=== PATIENT | male | born 1985 | race African-American/Black ===

== ENCOUNTER 2017-01-19 02:23 | Emergency (ER) | payer SELFPAY ==
[~2017-01-19] VITALS: Ht 190.5 cm; Wt 91.0 kg
[2017-01-19] MEDS ORDERED: KETOROLAC 30MG/ML VIAL IV STA (02:43)
[2017-01-19] MEDS ORDERED: ASPIRIN 81MG TABLET PO ONE (02:45)
[2017-01-19 03:08] LABS: EOSINOPHILS % 1.8 % (0.0-5.0); HEMATOCRIT. 38.6 % (42.0-52.0); HEMOGLOBIN. 12.5 g/dL (14.0-18.0); LYMPHOCYTES % 22.7 % (20.0-50.0); MEAN CORPUSCULAR HEMOGLOBIN 21.9 pg (28.0-32.0); MEAN CORPUSCULAR VOLUME 67.8 fL (80.0-94.0); MEAN PLATELET VOLUME 8.7 fl (7.4-10.4); MONOCYTES % 7.7 % (2.0-8.0); NEUTROPHILS % 66.8 % (40.0-76.0); PLATELET 246 x1000/uL (130-400); RED CELL DISTRIBUTION WIDTH 14.7 % (11.6-14.6)
[2017-01-19 03:11] LABS: PLATELET ESTIMATE 246
[2017-01-19 03:15] LABS: D-DIMER 0.47 mg/L FEU (<0.50); INR 1.1; PROTHROMBIN TIME 11.4 sec (9.4-11.6)
[2017-01-19 03:24] LABS: CARBON DIOXIDE 26 mEq/L (21-32); CHLORIDE 103 mEq/L (98-107); ETHANOL BLOOD < 10 mg/dL; TROPONIN I < 0.02 ng/mL (0.00-0.04)
[2017-01-19] MEDS ORDERED: VISCOUS LIDOCAINE 2% 15 ML UDC PO ONE (03:30)
[2017-01-19] MEDS ORDERED: MAGNESIUM/ALUMINUM HYDROXIDE/SIMETHICONE 30ML UDC PO ONE (03:30)
[2017-01-19] MEDS ORDERED: VISCOUS LIDOCAINE 2% 15 ML UDC PO SCH (03:46)
[2017-01-19] MEDS ORDERED: MAGNESIUM/ALUMINUM HYDROXIDE/SIMETHICONE 30ML UDC PO SCH (03:46)
[2017-01-19 03:53] LABS: *AMPHETAMINES SCREEN URINE NEGATIVE (NEGATIVE); *BARBITURATES SCREEN URINE NEGATIVE (NEGATIVE); *BENZODIAZEPINES SCREEN URINE NEGATIVE (NEGATIVE); *COCAINE SCREEN URINE NEGATIVE (NEGATIVE); CANNABINOID URINE SCREEN NEGATIVE (NEGATIVE); METHADONE URINE SCREEN NEGATIVE (NEGATIVE); OPIATES URINE SCREEN NEGATIVE (NEGATIVE); PHENCYCLIDINE URINE SCREEN NEGATIVE (NEGATIVE)
[2017-01-19 04:28] VITALS: BP 131/77
== END 2017-01-19 05:50 | disposition home or self-care (01) ==
LOC: ER 02:23
DX: R07.9 Chest pain, unspecified (principal); J45.909 Unspecified asthma, uncomplicated
CPT/HCPCS: 36415; 71010; 80053; 80305; 83690; 83880; 84484; 85025; 85379; 85610; 93005; 96374; 99285; G0482; J1885; Z7610

== ENCOUNTER 2017-03-05 01:35 | Inpatient (IN) | payer SELFPAY ==
[~2017-03-05] VITALS: Ht 190.5 cm; Wt 91.2 kg
[2017-03-05] MEDS ORDERED: KETOROLAC 30MG/ML VIAL IV STA (02:12)
[2017-03-05] MEDS ORDERED: SODIUM CHLORIDE 0.9% 1,000 ML IV ONE (02:15)
[2017-03-05] MEDS ORDERED: NITROGLYCERIN 0.4MG TABLET SL SL PRN (02:15)
[2017-03-05] MEDS ORDERED: ASPIRIN 81MG TABLET PO ONE (02:15)
[2017-03-05 03:00] LABS: HEMATOCRIT. 38.7 % (42.0-52.0); HEMOGLOBIN. 12.6 g/dL (14.0-18.0); MEAN CORPUSCULAR HEMOGLOBIN 21.9 pg (28.0-32.0); MEAN CORPUSCULAR VOLUME 67.7 fL (80.0-94.0); MEAN PLATELET VOLUME 9.2 fl (7.4-10.4); PLATELET 175 x1000/uL (130-400); RED BLOOD CELL COUNT 5.72 mill/uL (4.7-6.1); RED CELL DISTRIBUTION WIDTH 15.1 % (11.6-14.6)
[2017-03-05 03:04] LABS: INR 1.1; PROTHROMBIN TIME 11.6 sec (9.4-11.6)
[2017-03-05 03:12] LABS: CARBON DIOXIDE 29 mEq/L (21-32); CHLORIDE 99 mEq/L (98-107); CREATINE KINASE 95 IU/L (39-308); TROPONIN I < 0.02 ng/mL (0.00-0.04)
[2017-03-05 03:13] LABS: CREATINE KINASE MB FRACTION < 0.5 ng/mL (0.5-3.6)
[2017-03-05] MEDS ORDERED: MAGNESIUM/ALUMINUM HYDROXIDE/SIMETHICONE 30ML UDC PO ONE (04:45)
[2017-03-05] MEDS ORDERED: CLONIDINE 0.1MG TABLET PO PRN (06:15)
[2017-03-05] MEDS ORDERED: MAGNESIUM/ALUMINUM HYDROXIDE/SIMETHICONE 30ML UDC PO PRN (06:15)
[2017-03-05] MEDS ORDERED: ONDANSETRON HCL 4MG/2ML VIAL IV PRN (06:15)
[2017-03-05] MEDS: HYDROCODONE/ACETAMINOPHEN 5/325MG TABLET PO PRN ×4 (06:28→23:50)
[2017-03-05 06:30] LABS: PLATELET ESTIMATE NORMAL
[2017-03-05 08:10] VITALS: BP 123/71
[2017-03-05 09:00] VITALS: BP 123/71
[2017-03-05] MEDS: ASPIRIN 81MG EC TABLET PO SCH (10:29)
[2017-03-05 12:10] VITALS: BP 114/75
[2017-03-05 16:33] LABS: CREATINE KINASE 56 IU/L (39-308); CREATINE KINASE MB FRACTION < 0.5 ng/mL (0.5-3.6); TROPONIN I < 0.02 ng/mL (0.00-0.04)
[2017-03-05] MEDS: GUAIFENESIN 200MG/10ML SUGAR FREE UDC PO PRN (16:47)
[2017-03-05 17:10] VITALS: BP 121/63
[2017-03-05 18:32] LABS: *AMPHETAMINES SCREEN URINE NEGATIVE (NEGATIVE); *BARBITURATES SCREEN URINE NEGATIVE (NEGATIVE); *BENZODIAZEPINES SCREEN URINE NEGATIVE (NEGATIVE); *COCAINE SCREEN URINE NEGATIVE (NEGATIVE); CANNABINOID URINE SCREEN NEGATIVE (NEGATIVE); METHADONE URINE SCREEN NEGATIVE (NEGATIVE); OPIATES URINE SCREEN PRESUMTIVE POSITIVE (NEGATIVE); PHENCYCLIDINE URINE SCREEN NEGATIVE (NEGATIVE)
[2017-03-05 19:41] VITALS: BP 111/66
[2017-03-06] VITALS: BP 106/65
[2017-03-06 00:06] LABS: CREATINE KINASE 44 IU/L (39-308); CREATINE KINASE MB FRACTION < 0.5 ng/mL (0.5-3.6); TROPONIN I < 0.02 ng/mL (0.00-0.04)
[2017-03-06 04:00] VITALS: BP 118/67
[2017-03-06 08:36] VITALS: BP 106/51
[2017-03-06 08:54] LABS: CARBON DIOXIDE 27 mEq/L (21-32); CHLORIDE 101 mEq/L (98-107); HDL CHOLESTEROL 62 mg/dL (40-59); LDL CHOLESTEROL 60 mg/dL (5-100)
[2017-03-06] MEDS: ASPIRIN 81MG EC TABLET PO SCH (09:00)
[2017-03-06] MEDS ORDERED: ACETAMINOPHEN 325MG TABLET PO PRN (11:00)
[2017-03-06] MEDS: HYDROCODONE/ACETAMINOPHEN 5/325MG TABLET PO PRN ×2 (12:12→20:49)
[2017-03-06 12:51] VITALS: BP 108/58
[2017-03-06] MEDS: GUAIFENESIN 200MG/10ML SUGAR FREE UDC PO PRN (15:46)
[2017-03-06 16:15] VITALS: BP 103/57
[2017-03-06 19:55] VITALS: BP 112/59
[2017-03-06] MEDS ORDERED: BISACODYL 10MG SUPP PR PRN (21:00)
[2017-03-06] MEDS ORDERED: DOCUSATE SODIUM 100MG CAPSULE PO SCH (21:00)
[2017-03-07] VITALS (32 sets, daily range): BP systolic 45–131; BP diastolic 20–78
[2017-03-07] MEDS ORDERED: BACITRACIN ZINC 15GM TUBE TOP ONE (06:32)
[2017-03-07] MEDS ORDERED: SKIN ADHESIVE 0.7 GM EA TOP ONE (06:32)
[2017-03-07] MEDS ORDERED: BACITRACIN 50,000 UNITS/VIAL ONE (06:33)
[2017-03-07] MEDS ORDERED: NORMAL SALINE 0.9% 10 ML SYR ONE (06:33)
[2017-03-07] MEDS ORDERED: BUPIVACAINE/EPINEPH/PF 0.25%/0.0005 10ML ONE (06:41)
[2017-03-07 07:08] LABS: BASOPHILS % 0.2 % (0.0-2.0); EOSINOPHILS % 1.1 % (0.0-5.0); HEMATOCRIT. 34.5 % (42.0-52.0); MEAN CORPUSCULAR HEMOGLOBIN 21.9 pg (28.0-32.0); MEAN CORPUSCULAR VOLUME 68.5 fL (80.0-94.0); MEAN PLATELET VOLUME 8.3 fl (7.4-10.4); MONOCYTES % 14.2 % (2.0-8.0); NEUTROPHILS % 70.5 % (40.0-76.0); PLATELET 223 x1000/uL (130-400); RED BLOOD CELL COUNT 5.03 mill/uL (4.7-6.1); RED CELL DISTRIBUTION WIDTH 15.2 % (11.6-14.6)
[2017-03-07] MEDS ORDERED: NOREPINEPHRINE 4 MG in DEXT 5% WATER 246 ML IV NR (07:30)
[2017-03-07] MEDS ORDERED: EPINEPHRINE 4 MG in DEXT 5% WATER 246 ML IV NR (07:30)
[2017-03-07 07:57] LABS: CARBON DIOXIDE 28 mEq/L (21-32); CHLORIDE 99 mEq/L (98-107)
[2017-03-07] MEDS ORDERED: ROCURONIUM BROMIDE 10MG/ML VIAL 5ML IV ONE (08:09)
[2017-03-07] MEDS ORDERED: CEFAZOLIN SODIUM 1000MG/VIAL ONE (08:09)
[2017-03-07] MEDS ORDERED: DEXAMETHASONE 4MG/ML 1ML VIAL ONE (08:09)
[2017-03-07] MEDS ORDERED: FUROSEMIDE 20MG/2ML VIAL ONE (08:40)
[2017-03-07] MEDS ORDERED: NEOSTIGMINE METHYLSULFATE 1MG/ML 10 ML VIAL ONE (08:43)
[2017-03-07] MEDS: ASPIRIN 81MG EC TABLET PO SCH (09:00)
[2017-03-07 09:57] LABS: BG BASE EXCESS -5.2 mmol/L (-2.0-2.0); BG CARBOXYHEMOGLOBIN 0.6 % (0.5-1.5); BG DEOXYHEMOGLOBIN 4.1 % (0.0-5.0); BG HCO3 ACT 18.3 mmol/L (22.0-26.0); BG METHEMOGLOBIN 0.4 % (0.0-1.5); BG OXYGEN SATURATION 95.9 % (92.0-98.5); BG OXYHEMOGLOBIN 94.9 % (94.0-97.0); BG PCO2 30.1 mmHg (35.0-45.0); BG PH 7.402 (7.350-7.450); BG PO2 84.2 mmHg (75.0-100.0); BG SAMPLE SITE A-LINE; BG TOTAL HEMOGLOBIN 13.7 g/dL (12.0-18.0); BG VENT MODE NASAL CANNULA
[2017-03-07] MEDS: MORPHINE SULFATE 4 MG/ML CPJ (NOT FOR IM USE) IV PRN ×5 (10:09→20:47)
[2017-03-08] VITALS (23 sets, daily range): BP systolic 96–139; BP diastolic 50–87
[2017-03-08] MEDS: MORPHINE SULFATE 4 MG/ML CPJ (NOT FOR IM USE) IV PRN ×3 (00:49→21:37)
[2017-03-08] MEDS: ASPIRIN 81MG EC TABLET PO SCH (09:00)
[2017-03-09] VITALS (13 sets, daily range): BP systolic 105–144; BP diastolic 53–83
[2017-03-09] MEDS: MORPHINE SULFATE 4 MG/ML CPJ (NOT FOR IM USE) IV PRN (04:29)
[2017-03-09 07:26] LABS: BASOPHILS % 0.5 % (0.0-2.0); EOSINOPHILS % 2.7 % (0.0-5.0); HEMATOCRIT. 35.5 % (42.0-52.0); HEMOGLOBIN. 11.8 g/dL (14.0-18.0); LYMPHOCYTES % 26.4 % (20.0-50.0); MEAN CORPUSCULAR HEMOGLOBIN 22.3 pg (28.0-32.0); MEAN CORPUSCULAR VOLUME 67.3 fL (80.0-94.0); MEAN PLATELET VOLUME 8.1 fl (7.4-10.4); MONOCYTES % 10.7 % (2.0-8.0); NEUTROPHILS % 59.7 % (40.0-76.0); PLATELET 346 x1000/uL (130-400); RED BLOOD CELL COUNT 5.27 mill/uL (4.7-6.1); RED CELL DISTRIBUTION WIDTH 14.8 % (11.6-14.6)
[2017-03-09] MEDS: ASPIRIN 81MG EC TABLET PO SCH (08:17)
[2017-03-09 08:54] LABS: CARBON DIOXIDE 29 mEq/L (21-32); CHLORIDE 102 mEq/L (98-107)
[2017-03-10] VITALS (9 sets, daily range): BP systolic 95–120; BP diastolic 51–75
[2017-03-10] MEDS: ASPIRIN 81MG EC TABLET PO SCH (08:25)
== END 2017-03-10 15:20 | disposition home or self-care (01) | DRG 180 ==
LOC: ER 01:35 → 6WST 04:28 → SUPCPDRO 06:07 → ENRESERV 07:05 → CVICU 03-07 09:41 → 3WST 03-08 20:14
PROVIDERS: ADMIT Hospitalist; ATTEND Hospitalist
PROC: 02BN3ZX Excision of Pericardium, Percutaneous Approach, Diagnostic (ICD-10-PCS; 2017-03-07)
PROC: 0W9B30Z Drainage of Left Pleural Cavity with Drainage Device, Percutaneous Approach (ICD-10-PCS; 2017-03-07)
PROC: 0W9D3ZZ Drainage of Pericardial Cavity, Percutaneous Approach (ICD-10-PCS; 2017-03-07)
PROC: B246ZZ4 Ultrasonography of Right and Left Heart, Transesophageal (ICD-10-PCS; principal; 2017-03-07 07:30)
DX: I30.9 Acute pericarditis, unspecified (principal); E46 Unspecified protein-calorie malnutrition; R73.9 Hyperglycemia, unspecified; Z68.25 Body mass index [BMI] 25.0-25.9, adult
CPT/HCPCS: 36415; 36600; 71010; 71045; 80048; 80053; 80061; 80305; 82375; 82550; 82553; 82805; 82945; 83615; 83735; 83880; 84157; 84443; 84484; 85025; 85610; 86038; 86850; 86900; 86920; 87070; 87075; 87102; 87116; 87205; 88108; 88305; 88312; 89050; 93005; 93306; 93970; 96361; 96374; 99285; A4216; J0171; J0690; J1100; J1885; J1940; J2270; J2405; J2710; J3490; J7030; J7060; L3908